=== PATIENT | female | born 1985 | race Caucasian/White ===

== ENCOUNTER → 2016-11-04 | Outpatient (CLI) | payer OTHER ==
[2016-11-04 07:03] LABS: ASPARTATE AMINO TRANSFERASE 24 IU/L (8-39); BILIRUBIN,TOTAL 0.6 mg/dL (0.3-1.2); BLOOD UREA NITROGEN 14 mg/dL (7-22); CALCIUM 9.1 mg/dL (8.7-10.7); CHLORIDE 108 meq/L (98-112); CREATININE 0.7 mg/dL (0.50-1.20); EST GLOMERULAR FILTRATION > 60 (>60 ml/min/1.73m(2)); GLUCOSE 94 mg/dL (78-110); HDL CHOLESTEROL 44 mg/dL (40-150); POTASSIUM 3.9 meq/L (3.8-5.2); SODIUM 139 meq/L (135-145); TOTAL PROTEIN 6.5 g/dL (6.1-8.0); TRIGLYCERIDES 142 mg/dL (44-200)
[2016-11-04 07:04] LABS: HEMOGLOBIN A1C 5.34 % (4.2-6.0); MEAN BLOOD GLUCOSE (CALC) 91.822 mg/dL
[2016-11-04 07:19] LABS: FREE T4 (FREE THYROXINE) 1.12 ng/dL (0.93-1.71)
== END ==
LOC: LAB 06:15
PROVIDERS: ATTEND Family Medicine
DX: K29.71 Gastritis, unspecified, with bleeding (principal); N80.9 Endometriosis, unspecified; L73.2 Hidradenitis suppurativa; G47.00 Insomnia, unspecified; F39 Unspecified mood [affective] disorder; R76.8 Other specified abnormal immunological findings in serum; F17.210 Nicotine dependence, cigarettes, uncomplicated
CPT/HCPCS: 36415; 80053; 80061; 82306; 83036; 84439; 84443; 86039

== ENCOUNTER → 2016-11-25 | Outpatient (CLI) | payer BC, OTHER ==
--- NOTE | 2016-11-25 17:19 | DI ---
LEFT FOOT, 11/25/2016 4:35 PM: Clinical History: Left heel pain. Previous Exam: None at this facility. 3 views are submitted. There is no acute soft tissue, osseous, or joint abnormality. There is a small spur at the attachment of the plantar fascia to the calcaneus. Reading: Normal left foot exam.
== END ==
LOC: RAD 16:25
PROVIDERS: ATTEND Family Medicine
DX: M79.672 Pain in left foot (principal); D36.13 Benign neoplasm of peripheral nerves and autonomic nervous system of lower limb, including hip
CPT/HCPCS: 73630

== ENCOUNTER → 2016-12-30 | Outpatient (CLI) | payer BC ==
--- NOTE | 2016-12-31 09:07 | DI ---
RIGHT WRIST, 12/30/2016 4:13 PM: Clinical History: Right arm pain. Previous Exam: None at this facility. 3 routine views and a carpal tunnel view are submitted. There is no acute soft tissue, osseous, or sofiya int abnormality. Reading: Normal right wrist exam.
== END ==
LOC: RAD 16:13
PROVIDERS: ATTEND Physician Assistant
DX: M79.601 Pain in right arm (principal)
CPT/HCPCS: 73110

== ENCOUNTER → 2017-03-31 | Outpatient (CLI) | payer BC ==
--- NOTE | 2017-03-31 12:47 | DI ---
US BRST U/L OR B/L,03/31/2017 9:04 AM: Clinical History: Palpable lump on the 6:00 axis of the right breast. Previous Exam: None at this facility. Findings: Physical examination reveals the visible lung over the skin of the 6:00 axis along the surgical scar approximately 6 cm from the nipple. Sonographic evaluation reveals a complex cyst with increased through transmission and no detectable D oppler flow measuring 9 mm in diameter. Impression: Complex cyst within the right breast on the 6:00 axis approximately 6 cm from the nipple appears to b e within the dermis, and is most consistent with an epidermal inclusion cyst. BIRADS: 2: Benign findings Recommendations: Annual screening beginning at age 40. Note: Breast examination has been discussed and encouraged, and the patient informed to return if the re is any new or changed character of the palpable abnormality. Overall imaging assessment: Benign findings.
== END ==
LOC: US 08:55
PROVIDERS: ATTEND Family Medicine
DX: N63 Unspecified lump in breast (principal); N60.01 Solitary cyst of right breast
CPT/HCPCS: 76641